=== PATIENT | female | born 1955 | race Hispanic/Latino ===

== ENCOUNTER → 2019-05-02 | Outpatient (CLI) | payer MEDICARE, BC ==
[~2019-05-02] MED LIST: AMLODIPINE BESYL5 MG PO; ATENOLOL PO; ATENOLOL-CHLOR1 EAC1 PO; ATENOLOL50 MG PO; ATORVASTATIN CA20 MG PO; COZAAR50 MG PO; GABAPENTIN300 MG PO; GLIPIZIDE ER5 MG PO; GLUCOVANCE PO; JANUVIA100 MG PO; MELOXICAM7.5 MG PO; METFORMIN HCL1000 MG PO; PEPCID20 MG PO; PLAVIX75 MG PO
[2019-05-02 11:29] LABS: BASOPHILS % 0.6 % (0.0-1.0); EOSINOPHILS # (AUTO) 0.2 (0.0-0.4); EOSINOPHILS % 2.4 % (0.0-6.0); HEMATOCRIT 32.2 % (34.2-44.1); HEMOGLOBIN 10.5 g/dL (12.0-16.0); LYMPHOCYTES # (AUTO) 1.5 (1.0-3.2); LYMPHOCYTES % 22.6 % (18.0-39.1); MEAN CORPUSCULAR HEMOGLOBIN 29.3 pg (28-32); MEAN CORPUSCULAR HGB CONC 32.6 g/dL (31-35); MEAN CORPUSCULAR VOLUME 89.9 fL (81-99); MONOCYTES # (AUTO) 0.3 (0.2-0.8); MONOCYTES % 4.6 % (4.4-11.3); NEUTROPHILS # (AUTO) 4.5 (2.1-6.9); NEUTROPHILS % 69.5 % (38.7-80.0); PLATELET COUNT 269 x10e3/uL (140-360); RED BLOOD COUNT 3.58 x10e6/uL (3.6-5.1); RED CELL DISTRIBUTION WIDTH 13.1 % (11.7-14.4)
== END ==
LOC: RAD 05:00 → EDSTATUS 05-07 15:00
PROVIDERS: ATTEND Internal Medicine Gastroenterology
DX: Z01.818 Encounter for other preprocedural examination (principal); Z12.11 Encounter for screening for malignant neoplasm of colon; K21.9 Gastro-esophageal reflux disease without esophagitis; Z53.8 Procedure and treatment not carried out for other reasons
CPT/HCPCS: 36415; 85025; 93005

== ENCOUNTER 2022-05-10 08:01 | Emergency (ER) | payer BC, MEDICARE ==
[~2022-05-10] VITALS: Ht 152.4 cm; Wt 70.8 kg
[~2022-05-10 08:01] MED LIST changes: +DIOVAN160 MG PO; +JARDIANCE10 MG PO; +PANTOPRAZOLE SO40 MG PO
[2022-05-10 08:39] LABS: BASOPHILS % 0.7 % (0.0-1.0); EOSINOPHILS # (AUTO) 0.1 (0.0-0.4); HEMATOCRIT 39.4 % (34.2-44.1); HEMOGLOBIN 12.6 g/dL (12.0-16.0); LYMPHOCYTES # (AUTO) 1.4 (1.0-3.2); LYMPHOCYTES % 24.6 % (18.0-39.1); MEAN CORPUSCULAR HEMOGLOBIN 31.9 pg (28-32); MEAN CORPUSCULAR VOLUME 99.7 fL (81-99); MONOCYTES # (AUTO) 0.3 (0.2-0.8); MONOCYTES % 5.9 % (4.4-11.3); NEUTROPHILS # (AUTO) 3.9 (2.1-6.9); NEUTROPHILS % 67.6 % (38.7-80.0); PLATELET COUNT 164 x10e3/uL (140-360); RED BLOOD COUNT 3.95 x10e6/uL (3.6-5.1); RED CELL DISTRIBUTION WIDTH 15.2 % (11.7-14.4)
[2022-05-10 08:50] LABS: INR 0.96; PARTIAL THROMBOPLASTIN TIME 32.8 seconds (23.8-35.5); PROTHROMBIN TIME 13.3 seconds (11.9-14.5)
[2022-05-10 08:59] LABS: ALBUMIN 3.2 g/dL (3.5-5.0); ALBUMIN/GLOBULIN RATIO 0.9 (0.8-2.0); ANION GAP 20.5 mmol/L (8-16); CALCIUM 8.5 mg/dL (8.4-10.2); CREATININE, SERUM 6.94 mg/dL (0.57-1.11); POTASSIUM 3.5 mmol/L (3.5-5.1)
[2022-05-10] MEDS ORDERED: SODIUM CHLORIDE 0.9% 100 ML ONE (09:22)
[2022-05-10] MEDS ORDERED: IOPAMIDOL 370 MG/ML 100 ML INFUS..BTL INJ ONE (09:22)
[2022-05-10 16:11] VITALS: BP 158/84
== END 2022-05-10 17:07 | disposition short-term general hospital (02) ==
LOC: ER 08:18
DX: I99.8 Other disorder of circulatory system (principal); T82.898A Other specified complication of vascular prosthetic devices, implants and grafts, initial encounter; I12.0 Hypertensive chronic kidney disease with stage 5 chronic kidney disease or end stage renal disease; N18.6 End stage renal disease; Z99.2 Dependence on renal dialysis; Z20.822 Contact with and (suspected) exposure to COVID-19; Z79.02 Long term (current) use of antithrombotics/antiplatelets; Z79.84 Long term (current) use of oral hypoglycemic drugs; Z79.899 Other long term (current) drug therapy; Z89.512 Acquired absence of left leg below knee; Z89.511 Acquired absence of right leg below knee
CPT/HCPCS: 0223U; 36415; 73206; 80053; 85025; 85610; 85730; 99284; J7050; Q9967

== ENCOUNTER 2022-08-10 10:58 | Outpatient (RCR) | payer MEDICARE ==
[~2022-08-10 10:58] MED LIST changes: +ASPIRIN81 MG PO; +B-121000 MC2; +COREG12.5 MG PO; +CRESTOR10 MG PO; +FOLIC ACID0.4 MG PO; +HYDROCHLOROTHIA25 MG PO
== END 2022-08-19 ==
LOC: OT 10:58
PROVIDERS: ATTEND Plastic Surgery
DX: M24.541 Contracture, right hand (principal); R53.1 Weakness

== ENCOUNTER → 2022-09-06 | Day surgery (SDC) | payer MEDICARE ==
[~2022-09-06] MED LIST changes: +ACETAMINOPHEN 1000 MG/100 ML 100 ML IV ONE; +ACETAMINOPHEN-1 EAC4 PO; +BUPIVACAINE HCL 0.5% INJ 30 ML VIAL INJ ONE; +DEXAMETHASONE SOD PHOS INJ 4 MG/ML SDV ONE; +FENTANYL CITRATE/PF 100MCG/2 ML INJ ONE; +LIDOCAINE HCL 2% LOCAL INJ 5 ML SDV VIAL INJ ONE; +MUPIROCIN 2% OINT 22 GM TUBE ONE; +ONDANSETRON HCL INJ 2MG/ML 2ML 2 MG/ML VIAL ONE; +POVIDONE IODINE 0.05% 0.05 % ML PO ONE; +PROPOFOL IV EMULSION 10 MG/ML 20 ML VIAL ONE; +SEVOFLURANE INHAL SOLN 250 ML PEN BTL ONE; +SODIUM CHLORIDE 0.9% 500ML 500 ML ONE
[2022-09-06 08:14] LABS: BASOPHILS % 0.3 % (0.0-1.0); EOSINOPHILS % 0.7 % (0.0-6.0); HEMATOCRIT 34.1 % (34.2-44.1); LYMPHOCYTES # (AUTO) 1.1 (1.0-3.2); LYMPHOCYTES % 19.9 % (18.0-39.1); MEAN CORPUSCULAR HEMOGLOBIN 29.6 pg (28-32); MEAN CORPUSCULAR HGB CONC 32.3 g/dL (31-35); MEAN CORPUSCULAR VOLUME 91.9 fL (81-99); MONOCYTES # (AUTO) 0.2 (0.2-0.8); MONOCYTES % 3.3 % (4.4-11.3); NEUTROPHILS # (AUTO) 4.3 (2.1-6.9); NEUTROPHILS % 75.3 % (38.7-80.0); PLATELET COUNT 214 x10e3/uL (140-360); RED BLOOD COUNT 3.71 x10e6/uL (3.6-5.1); RED CELL DISTRIBUTION WIDTH 14.9 % (11.7-14.4)
[2022-09-06 08:25] LABS: INR 0.91; PROTHROMBIN TIME 12.8 seconds (11.9-14.5)
[2022-09-06 08:26] LABS: PARTIAL THROMBOPLASTIN TIME 40.6 seconds (23.8-35.5)
[2022-09-06 08:34] LABS: ANION GAP 14.6 mmol/L (8-16); CALCIUM 8.3 mg/dL (8.4-10.2); CREATININE, SERUM 3.58 mg/dL (0.57-1.11); POTASSIUM 3.6 mmol/L (3.5-5.1)
[2022-09-06] MEDS: HYDRALAZINE HCL 20 MG/ML VIAL ONE ×2 (10:25→10:33)
[2022-09-06 11:05] VITALS: BP 142/66; PULSE 64; RESP 17; O2SAT 97
== END | disposition home or self-care (01) ==
LOC: OR 06:29
PROVIDERS: ATTEND Plastic Surgery
DX: I96 Gangrene, not elsewhere classified (principal); M86.141 Other acute osteomyelitis, right hand; I12.0 Hypertensive chronic kidney disease with stage 5 chronic kidney disease or end stage renal disease; N18.6 End stage renal disease; E78.5 Hyperlipidemia, unspecified; I49.9 Cardiac arrhythmia, unspecified; Z01.818 Encounter for other preprocedural examination; Z99.2 Dependence on renal dialysis; Z79.82 Long term (current) use of aspirin; Z79.899 Other long term (current) drug therapy; Z95.5 Presence of coronary angioplasty implant and graft
CPT/HCPCS: 26910; 36415; 71046; 80048; 82948; 85025; 85610; 85730; 87071; 87075; 87186; 87205; 88305; 88311; J0131; J0360; J0690; J1100; J2001; J2405; J2704; J3010; J7040; 88302